=== PATIENT | male | born 1950 | race Hispanic/Latino ===

== ENCOUNTER 2021-12-17 08:06 | Outpatient (CLI) | payer BC ==
[2021-12-17 09:37] LABS: Hemoglobin 13.1 g/dL (13.5-17.5); Mean Corpuscular HGB CONC 32.7 g/dL (32.0-36.0); Mean Corpuscular Hemoglobin 28.5 pg (27.0-33.0); Mean Corpuscular Volume 87.2 fl (81.2-95.1); Mean Platelet Volume 10.6 fl (7.4-10.4); Platelet Count 267 10x3/uL (150-450); RBC Distribution Width 14.1 % (11.5-14.5); White Blood Cell (WBC) Count 9.3 10x3/uL (3.5-10.5)
[2021-12-17 09:43] LABS: Bilirubin Neg (Negative); Blood, Urine Negative (Negative); Glucose, Urine (Dipstick) Normal (Negative); Ketone, Urine Negative (Negative); Leukocyte 100 (Negative); Nitrite Negative (Negative); Protein, Urine (Dipstick) Negative (Neg-Trace); Urobilinogen Normal mg/dL (Less than 2)
[2021-12-17 10:05] LABS: Clarity Clear (Clear)
[2021-12-17 10:08] LABS: Anion Gap 15 mmol/L (10-20); BUN (Urea Nitrogen) 20 mg/dL (8.4-25.7); Calc. Creatinine Clearance 0 mL/min (70-130); Calcium 9.2 mg/dL (7.8-10.44); Carbon Dioxide 26 mmol/L (23-31); Chloride 104 mmol/L (98-107); Glucose 97 mg/dL (80-115); Sodium 141 mmol/L (136-145)
[2021-12-17 10:20] LABS: Bacteria/HPF None Seen HPF (None Seen); RBC/HPF 0-3 HPF (0-3); Squamous Epithelial 0-3 HPF (0-3); WBC/HPF 0-3 HPF (0-3)
[2021-12-17 18:25] LABS: SARS-CoV-2 PCR by NAA Not Detected (NotDetected)
== END 2021-12-17 08:07 | disposition home or self-care (01) ==
LOC: LABBT 08:06
PROVIDERS: ATTEND Urology
DX: Z01.818 Encounter for other preprocedural examination (principal); N40.1 Benign prostatic hyperplasia with lower urinary tract symptoms; Z20.822 Contact with and (suspected) exposure to COVID-19
CPT/HCPCS: 80048; 81001; 85027; 87077; 87086; 93005; 93010; U0003; U0005

== ENCOUNTER 2021-12-21 08:45 | Day surgery (SDC) | payer BC ==
[2021-12-16 13:19] VITALS: BMI 36.8
[2021-12-21] MEDS ORDERED: Midazolam HCl 2 mg/2 ml Vial ONE (10:04)
[2021-12-21] MEDS ORDERED: Propofol 500 MG/50 ML VIAL ONE (10:04)
[2021-12-21] MEDS ORDERED: Fentanyl 100 MCG/2 ML VIAL ONE (10:04)
[2021-12-21] MEDS ORDERED: Ketamine 50 MG/ML (10ML VIAL) ONE (10:05)
[2021-12-21] MEDS ORDERED: Levofloxacin 500 mg/D5W 100 ml Premix Bag ONE (10:08)
[2021-12-21] MEDS ORDERED: Ketorolac Tromethamine 30 MG/ML VIAL ONE (12:05)
[2021-12-21] MEDS ORDERED: Oxybutynin 5 MG TAB ONE (12:05)
[2021-12-21] MEDS ORDERED: Phenazopyridine HCl 100 MG TAB ONE (12:05)
== END 2021-12-21 12:35 | disposition home or self-care (01) ==
LOC: SDC 08:45
PROVIDERS: ATTEND Urology
PROC: 0T7D8DZ Dilation of Urethra with Intraluminal Device, Via Natural or Artificial Opening Endoscopic (ICD-10-PCS; principal; 2021-12-21)
DX: N40.1 Benign prostatic hyperplasia with lower urinary tract symptoms (principal); R39.12 Poor urinary stream; R39.15 Urgency of urination; R39.16 Straining to void; R35.1 Nocturia; I10 Essential (primary) hypertension; E78.5 Hyperlipidemia, unspecified; E11.9 Type 2 diabetes mellitus without complications; Z87.891 Personal history of nicotine dependence; Z79.84 Long term (current) use of oral hypoglycemic drugs; Z79.899 Other long term (current) drug therapy
CPT/HCPCS: J1885; J1956; J2250; J2704; J3010; L8699

== ENCOUNTER 2022-03-30 12:38 | Outpatient (CLI) | payer BC | END 2022-03-30 12:39 | disposition home or self-care (01) | LOC: BICRAD 12:38 | PROVIDERS: ATTEND Family Medicine | DX: R05.9 Cough, unspecified (principal) | CPT/HCPCS: 71046 ==

== ENCOUNTER 2023-06-05 09:41 | Outpatient (CLI) | payer BC | END 2023-06-05 09:42 | disposition home or self-care (01) | LOC: CT 09:41 | PROVIDERS: ATTEND Urology | DX: Z51.81 Encounter for therapeutic drug level monitoring (principal); R97.20 Elevated prostate specific antigen [PSA]; R35.0 Frequency of micturition; R30.0 Dysuria; R31.29 Other microscopic hematuria; N32.89 Other specified disorders of bladder; N40.0 Benign prostatic hyperplasia without lower urinary tract symptoms; R59.0 Localized enlarged lymph nodes; Z79.01 Long term (current) use of anticoagulants | CPT/HCPCS: 74178; 82565 ==

== ENCOUNTER 2023-08-04 13:40 | Outpatient (CLI) | payer BC ==
[2023-08-04 15:30] LABS: Bilirubin Neg (Negative); Blood, Urine Negative (Negative); Clarity Clear (Clear); Glucose, Urine (Dipstick) Normal (Negative); Ketone, Urine 5 mg/dL (Negative); Leukocyte 25 (Negative); Nitrite Negative (Negative); Protein, Urine (Dipstick) 30 mg/dl (Neg-Trace); Specific Gravity, Urine 1.015 (1.005-1.030)
[2023-08-04 15:47] LABS: Bacteria/HPF None Seen HPF (None Seen); Hematocrit 38.8 % (38.8-50.0); Hemoglobin 12.7 g/dL (13.5-17.5); INR-International Normal Ratio 1.1; Mean Corpuscular HGB CONC 32.7 g/dL (32.0-36.0); Mean Corpuscular Hemoglobin 27.3 pg (27.0-33.0); Mean Corpuscular Volume 83.4 fl (81.2-95.1); Mean Platelet Volume 11.3 fl (7.4-10.4); PTT 31.6 sec (22.0-33.0); Platelet Count 274 10x3/uL (150-450); Prothrombin Time 11.4 sec (9.5-12.1); RBC Distribution Width 14.1 % (11.5-14.5); RBC/HPF None Seen HPF (0-3); Red Blood Cell (RBC) Count 4.65 10x6/uL (4.32-5.72); Squamous Epithelial 0-3 HPF (0-3); WBC/HPF 0-3 HPF (0-3); White Blood Cell (WBC) Count 10.4 10x3/uL (3.5-10.5)
[2023-08-04 15:59] LABS: Anion Gap 14 mmol/L (10-20); BUN (Urea Nitrogen) 16 mg/dL (8.4-25.7); Calc. Creatinine Clearance 0 mL/min (70-130); Calcium 8.9 mg/dL (7.8-10.44); Carbon Dioxide 25 mmol/L (23-31); Chloride 108 mmol/L (98-107); Estimated GFR 73; Glucose 99 mg/dL (83-110); Sodium 143 mmol/L (136-145)
== END 2023-08-04 13:41 | disposition home or self-care (01) ==
LOC: LABBT 13:40
PROVIDERS: ATTEND Urology
DX: Z01.818 Encounter for other preprocedural examination (principal); Z51.81 Encounter for therapeutic drug level monitoring; E11.9 Type 2 diabetes mellitus without complications; I10 Essential (primary) hypertension; I48.91 Unspecified atrial fibrillation; N40.1 Benign prostatic hyperplasia with lower urinary tract symptoms; R35.0 Frequency of micturition; R97.20 Elevated prostate specific antigen [PSA]; R30.0 Dysuria; R31.29 Other microscopic hematuria; R93.41 Abnormal radiologic findings on diagnostic imaging of renal pelvis, ureter, or bladder; Z87.891 Personal history of nicotine dependence; Z79.01 Long term (current) use of anticoagulants
CPT/HCPCS: 80048; 81001; 85027; 85610; 85730; 87086; 93005; 93010

== ENCOUNTER 2023-09-06 08:34 | Outpatient (CLI) | payer BC ==
[2023-09-06] MEDS ORDERED: Iopamidol 370 76% 100 ML VIAL ONE (09:37)
== END 2023-09-06 08:35 | disposition home or self-care (01) ==
LOC: NM 08:34
PROVIDERS: ATTEND Urology
DX: C65.2 Malignant neoplasm of left renal pelvis (principal); R91.8 Other nonspecific abnormal finding of lung field; Z96.0 Presence of urogenital implants
CPT/HCPCS: 71260; 74178; 78306; 82565; A9503

== ENCOUNTER 2023-10-27 08:41 | Outpatient (CLI) | payer BC ==
[2023-10-27] MEDS ORDERED: Iopamidol 370 76% 100 ML VIAL ONE (12:50)
== END 2023-10-27 08:42 | disposition home or self-care (01) ==
LOC: CT 08:41
PROVIDERS: ATTEND Urology
DX: C65.2 Malignant neoplasm of left renal pelvis (principal); R91.8 Other nonspecific abnormal finding of lung field; R59.9 Enlarged lymph nodes, unspecified
CPT/HCPCS: 71260; 74178; 82565; Q9967

== ENCOUNTER → 2023-12-05 | Outpatient (CLI) | payer BC | LOC: PET 13:15 | PROVIDERS: ATTEND Urology | DX: C65.2 Malignant neoplasm of left renal pelvis (principal); R59.0 Localized enlarged lymph nodes | CPT/HCPCS: 78815; A9552 ==

== ENCOUNTER 2024-01-08 07:29 | Day surgery (SDC) | payer BC ==
[2024-01-05 10:16] VITALS: BMI 38.4
[2024-01-08 09:01] LABS: #Basophils 0.04 10x3/uL (0.0-0.2); %Basophils 0.5 % (0.0-1.0); %Eosinophils 2.7 % (0.0-10.0); %Lymphocytes 26.8 % (21.0-51.0); %Monocytes 9.3 % (0.0-10.0); %Neutrophils 60.1 % (42.0-75.0); Hematocrit 40.7 % (42.0-52.0); Hemoglobin 13.5 g/dL (14.0-18.0); Mean Corpuscular HGB CONC 33.2 g/dL (32.0-36.0); Mean Corpuscular Hemoglobin 28.1 pg (27.0-31.0); Mean Corpuscular Volume 84.6 fL (78.0-98.0); Mean Platelet Volume 10.7 fL (7.4-10.4); Platelet Count 236 10x3/uL (130-400); RBC Distribution Width 13.9 % (11.5-14.5); Red Blood Cell (RBC) Count 4.81 mill/uL (4.70-6.10)
[2024-01-08 09:10] LABS: Anion Gap 15 mmol/L (10-20); BUN (Urea Nitrogen) 19 mg/dL (8.4-25.7); Calc. Creatinine Clearance 81 mL/min (70-130); Carbon Dioxide 25 mmol/L (23-31); Chloride 105 mmol/L (98-107); Estimated GFR 67; Glucose 132 mg/dL (83-110); Potassium 3.4 mmol/L (3.5-5.1); Sodium 142 mmol/L (136-145)
[2024-01-08] MEDS ORDERED: Ipratropium/Albuterol 3 ML NEB ONE (09:15)
[2024-01-08] MEDS ORDERED: Lidocaine 4% PF 5 ML AMP ONE (09:15)
[2024-01-08] MEDS ORDERED: PROPOFOL 20 ML ONE ×2 (09:22→10:49)
[2024-01-08] MEDS ORDERED: fentaNYL 50 mcg/mL 1 mL Vial ONE (09:23)
[2024-01-08] MEDS ORDERED: Ondansetron PF 4 MG/2 ML Vial ONE (09:28)
[2024-01-08] MEDS ORDERED: Dexamethasone 4 mg/ml Vial ONE (09:28)
[2024-01-08] MEDS ORDERED: Rocuronium Bromide 10 MG/ML (10ML VIAL) ONE (09:28)
[2024-01-08] MEDS ORDERED: Lidocaine 1% PF 5 ML VIAL ONE (09:28)
[2024-01-08] MEDS ORDERED: PHENYLEPHRINE-NS 100 MCG/ML 10 ML SYRINGE ONE (10:59)
[2024-01-08] MEDS ORDERED: SUGAMMADEX SODIUM 200 MG/2 ML VIAL ONE (11:12)
[2024-01-12 14:39] LABS: Fungus Stain Final report (.)
== END 2024-01-08 13:32 | disposition home or self-care (01) ==
LOC: SDC 07:29
PROVIDERS: ATTEND Internal Medicine
PROC: 07978ZX Drainage of Thorax Lymphatic, Via Natural or Artificial Opening Endoscopic Approach, Diagnostic (ICD-10-PCS; principal; 2024-01-08)
DX: R59.0 Localized enlarged lymph nodes (principal); C68.9 Malignant neoplasm of urinary organ, unspecified; G47.33 Obstructive sleep apnea (adult) (pediatric); I10 Essential (primary) hypertension; E78.5 Hyperlipidemia, unspecified; Z79.01 Long term (current) use of anticoagulants; Z87.891 Personal history of nicotine dependence; Z79.899 Other long term (current) drug therapy
CPT/HCPCS: 80048; 85025; 87070; 87102; 87116; 87205; 87206; 88112; 88172; 88173; 88177; 88305; 88341; 88342; J1100; J2405; J2704; J3010; J7620